=== PATIENT | female | born 1975 | race Caucasian/White ===

== ENCOUNTER 2022-10-20 10:20 | Emergency (ER) | payer BC ==
[~2022-10-20] VITALS: Wt 81.6 kg
[2022-10-20] MEDS ORDERED: HYDROCODONE-AC1 EAC1 PO (12:01)
== END 2022-10-20 12:28 | disposition home or self-care (01) ==
LOC: ED 10:20
DX: S62.305A Unspecified fracture of fourth metacarpal bone, left hand, initial encounter for closed fracture (principal); W18.30XA Fall on same level, unspecified, initial encounter; Y93.89 Activity, other specified; Y92.009 Unspecified place in unspecified non-institutional (private) residence as the place of occurrence of the external cause; Y99.8 Other external cause status